=== PATIENT | female | born 2000 | race Caucasian/White ===

== ENCOUNTER 2023-09-25 00:31 | Emergency (ER) | payer OTHER ==
[~2023-09-25] VITALS: Ht 157.5 cm; Wt 111.4 kg
[2023-09-25 00:32] VITALS: TEMP 97.9
[2023-09-25 00:46] LABS: BASO # 0.1 K/mm3 (0.0-0.2); BASO % 0.5 % (0.0-2.0); EOS # 0.7 K/mm3 (0.0-0.7); GRAN # 6.5 K/mm3 (1.4-6.5); GRAN % 55.6 % (42.2-75.2); HEMATOCRIT 42.4 % (37.0-47.0); HEMOGLOBIN 14.4 g/dl (12.5-16.0); LYMPH # 3.6 K/mm3 (1.2-3.4); LYMPH % 30.6 % (20.0-51.0); MEAN CELL VOLUME 85 fl (80.0-100.0); MEAN CORPUSCULAR HEMOGLOBIN 29 pg (27-31); MEAN CORPUSCULAR HGB CONC 34 g/dl (33.0-37.0); MEAN PLATELET VOLUME 9.5 fl (7.4-10.4); MONO # 0.8 K/mm3 (0.1-0.6); PLATELET COUNT 348 K/mm3 (130-400); REDCELL DISTRIBUTION WIDTH-CV 12.9 % (11.5-14.5)
[2023-09-25 00:54] LABS: COLLECTION METHOD CLEAN CATCH
[2023-09-25 01:01] LABS: URINE APPEARANCE Clear (CLEAR/HAZY); URINE BLOOD 3+ (NEGATIVE); URINE COLOR Yellow (YELLOW); URINE GLUCOSE Negative (NEGATIVE); URINE KETONE Negative (NEGATIVE); URINE NITRATE Negative (NEGATIVE); URINE PROTEIN(semi-quant) 1+ (NEGATIVE); URINE UROBILINOGEN 0.2 E.U/dL (0.2-1.0)
[2023-09-25 01:01] LABS: ALBUMIN 4.1 gm/dL (3.5-5.0); BILIRUBIN,TOTAL 0.2 mg/dL (0.2-1.2); CALCIUM 9.3 mg/dL (8.4-10.2); CREATININE, serum 0.69 mg/dL (0.57-1.11); POTASSIUM 3.9 mmol/L (3.5-4.5); TOTAL PROTEIN 7.7 gm/dL (6.2-8.1)
[2023-09-25 01:09] LABS: URINE BACTERIA Rare /hpf (NONE SEEN)
[2023-09-25 02:59] VITALS: BP 148/91; PULSE 78
== END 2023-09-25 03:00 | disposition home or self-care (01) ==
LOC: COL.ER 00:31
PROVIDERS: Nurse Practitioner Primary Care
DX: N20.9 Urinary calculus, unspecified (principal); Z98.890 Other specified postprocedural states
CPT/HCPCS: J1885; J7030; Q9967